=== PATIENT | female | born 1985 | race Caucasian/White ===

== ENCOUNTER → 2016-08-07 | Outpatient (CLI) | payer OTHER ==
--- NOTE | 2016-08-08 00:03 | XCELERA REPORT ---
[address] [address] Transthoracic Echocardiogram Report Name: URIEL GREEN Age: 31 yrs Gender: Female : 1985 Patient Status: Outpatient Patient Location: Study Date: 08/07/2016 01:06 PM Height: 67 in Weight: 180 lb BSA: 1.9 m2 Procedure: A complete two-dimensional transthoracic echocardiogram was performed (2D, M-mode, spectral and color flow Doppler). The study was technically adequate with some images being suboptimal in quality. Reason For Study: I31.3 Ordering Physician: JOSE GAGNON Performed By: Genet Peraza Interpretation Summary Left ventricular systolic function is normal. Doppler measurements suggest normal left ventricular diastolic function There is normal left ventricular wall thickness. The left ventricle is grossly normal size. Wall motion cannot be accurately commented on, but no definite regional wall motion abnormalities noted. The right ventricular systolic function is normal. The left atrial size is normal. The right atrium is normal in size There is no mitral valve stenosis. There is a trace amount of mitral regurgitation There is no aortic valve stenosis No aortic regurgitation is present. There is a trace or physiologic amount of tricuspid regurgitation Tricuspid regurgitation jet envelope not well defined to measure RV systolic pressure accurately. The aortic root is not well visualized but is probably normal size. The inferior vena cava appeared normal and decreased > 50% with respiration (RAP 5-10 mmHg) Minimal pericardial effusion. MMode/2D Measurements \T\ Calculations RVDd: 2.1 cm LVIDd: 4.6 cm FS: 39.9 % Ao root diam: 2.9 cm IVSd: 0.77 cm LVIDs: 2.8 cm EDV(Teich): 99.0 ml LVPWd: 0.81 cmESV(Teich): 29.1 ml Ao root area: 6.7 cm2 EF(Teich): 70.5 % LA dimension: 2.2 cm LVOT diam: 2.1 cm LVOT area: 3.3 cm2 Doppler Measurements \T\ Calculations MV E max rita: MV P1/2t max rita: Ao V2 max: LV V1 max P.0 cm/sec 118.5 cm/sec 161.3 cm/sec 8.0 mmHg MV A max rita: MV P1/2t: 50.5 msec Ao max PG: LV V1 max: 98.7 cm/sec MVA(P1/2t): 4.4 cm2 10.4 mmHg 141.7 cm/sec MV E/A: 1.2 MV dec slope: ADRIANO(V,D): 2.9 cm2 686.6 cm/sec2 PA V2 max: TR max rita: 108.6 cm/sec 258.4 cm/sec PA max PG: TR max P.7 mmHg 4.7 mmHg Left Ventricle The left ventricle is grossly normal size. There is normal left ventricular wall thickness. Left ventricular systolic function is normal. Doppler measurements suggest normal left ventricular diastolic function. Wall motion cannot be accurately commented on, but no definite regional wall motion abnormalities noted. Right Ventricle The right ventricle is grossly normal size. There is normal right ventricular wall thickness. The right ventricular systolic function is normal. Atria The right atrium is normal in size. The left atrial size is normal. Interarterial septum not well visualized and not well dopplered. Cannot comment on ASD/PFO presence. Mitral Valve The mitral valve is grossly normal. There is no mitral valve stenosis. There is a trace amount of mitral regurgitation. Aortic Valve The aortic valve is not well visualized secondary to technical limitations. There is no aortic valve stenosis. No aortic regurgitation is present. Tricuspid Valve The tricuspid valve is not well visualized, but is grossly normal. There is no tricuspid stenosis. There is a trace or physiologic amount of tricuspid regurgitation. Tricuspid regurgitation jet envelope not well defined to measure RV systolic pressure accurately. Pulmonic Valve The pulmonic valve is not well visualized. Great Vessels The aortic root is not well visualized but is probably normal size. The inferior vena cava appeared normal and decreased > 50% with respiration (RAP 5-10 mmHg). Effusions Minimal pericardial effusion. : JOSE GAGNON > Owen Ibarra
== END ==
LOC: SP 12:56
PROVIDERS: ATTEND Specialist
DX: I31.3 Pericardial effusion (noninflammatory) (principal)
CPT/HCPCS: 93306

== ENCOUNTER 2016-08-21 08:59 | Day surgery (SDC) | payer OTHER ==
[2016-08-20 10:06] LABS: HEMATOCRIT 40.8 % (36.0-47.0); HEMOGLOBIN 13.2 g/dL (12.0-15.5); HGB HCT DIFFERENCE -1.2; MEAN CORPUSCULAR HEMOGLOBIN 27.8 pg (27.0-33.4); MEAN CORPUSCULAR HGB CONC 32.4 g/dL (32.0-36.0); MEAN CORPUSCULAR VOLUME 86 fl (80-97); RED BLOOD COUNT 4.75 10^6/uL (3.72-5.28); RED CELL DISTRIBUTION WIDTH 13.1 % (11.5-14.0); WHITE BLOOD COUNT 6.2 10^3/uL (4.0-10.5)
[2016-08-20 10:42] LABS: ALANINE AMINOTRANSFERASE 36 U/L (9-52); ALBUMIN 4.5 g/dL (3.5-5.0); ALKALINE PHOSPHATASE 71 U/L (38-126); ANION GAP 11 (5-19); ASPARTATE AMINO TRANSFERASE 29 U/L (14-36); BILIRUBIN,DIRECT 0.3 mg/dL (0.0-0.4); BILIRUBIN,TOTAL 0.5 mg/dL (0.2-1.3); BLOOD UREA NITROGEN 4 mg/dL (7-20); CALCIUM 9.6 mg/dL (8.4-10.2); CARBON DIOXIDE 27 mmol/L (22-30); CHLORIDE 101 mmol/L (98-107); GLUCOSE 75 mg/dL (75-110); POTASSIUM 3.8 mmol/L (3.6-5.0); SODIUM 139.4 mmol/L (137-145); TOTAL PROTEIN 7.6 g/dL (6.3-8.2)
--- NOTE | 2016-08-20 12:55 | EKG REPORT ---
SEVERITY:- OTHERWISE NORMAL ECG - SINUS RHYTHM LOW VOLTAGE EKG : Confirmed by: Sotero Sabillon MD 20-Aug-2016 12:55:01
[~2016-08-21 08:59] MED LIST: ACETAMINOPHEN 325 MG TABLET PO PRN; CEFAZOLIN 1 GM/D5W RTU 1 GM/50 ML RTUPB IV PRN; LACTATED RINGERS 1000 ML IV PRN; LIDOCAINE 0.5% INJ-PF (5 MG/ML) 50 ML SDV SUBCUT PRN
[2016-08-21] MEDS ORDERED: BUPIVACAINE HCL 0.25 % INJ/PF (2.5 MG/1 ML) 30 ML VIAL ONE (09:14)
[2016-08-21] MEDS ORDERED: SCOPOLAMINE HYDROBROMIDE 1.5 MG PATCH.TD72 ONE (09:57)
[2016-08-21] MEDS ORDERED: FAMOTIDINE INJ/PF 20 MG/2 ML SDV IV ONE (09:58)
[2016-08-21] MEDS ORDERED: FENTANYL CITRATE INJ/PF 250 MCG/5 ML AMPULE ONE (10:44)
[2016-08-21] MEDS ORDERED: MIDAZOLAM 2 MG/2 ML INJ ONE (10:45)
[2016-08-21] MEDS ORDERED: PROPOFOL INJ 200 MG/20 ML VIAL IV ONE (10:46)
[2016-08-21] MEDS ORDERED: IBUPROFEN INJ 800 MG/8 ML VIAL IV ONE (10:46)
[2016-08-21] MEDS ORDERED: MORPHINE SULFATE 10 MG/ML INJ ONE (10:46)
--- NOTE | 2016-08-21 12:16 | Operative Report ---
Operative Report DATE OF SURGERY: 08/21/16 PREOPERATIVE DIAGNOSIS: Symptomatic cholelithiasis. POSTOPERATIVE DIAGNOSIS: Somatic cholelithiasis OPERATION: Laparoscopic cholecystectomy SURGEON: CHEPE VALVERDE ANESTHESIA: GA TISSUE REMOVED OR ALTERED: gallbladder COMPLICATIONS: None ESTIMATED BLOOD LOSS: Minimal INTRAOPERATIVE FINDINGS: None PROCEDURE: Informed consent was obtained. Patient was brought to the operating room placed operating table in supine position. After satisfactory induction of general anesthesia, patient's abdomen was prepped and draped in usual sterile fashion. A infra umbilical midline incision was made and dissection carried down to the fascia the peritoneal cavity entered without difficulty. Granado trocar was inserted. Pneumoperitoneum produced good patient toleration. 5 mm trocar was placed in the subxiphoid location.Two 5 mm trochars were placed in the right subcostal location. The gallbladder was grasped and retracted cephalad over the dome of the liver. The infundibulum of the gallbladder was grasped retracted laterally and inferiorly thus exposing calot's triangle. There was a enlarged close node and it was identified and its pedicle was clipped and divided. The cystic duct gallbladder junction was clearly identified and the cystic duct was clipped and divided. Cystic artery was likewise taken. The gallbladder was taken off the gallbladder bed using the hook electrocautery technique. The gallbladder was removed with an Endobag through the Granado trocar site fascial defect. Hemostasis appeared excellent. Small amount of irrigation and aspiration was performed. Irrigation fluid was perfectly clear at the end of the case. All trochars were removed under the direct vision a laparoscope to ensure hemostasis. The Granado trocar site fascial defect was closed with interrupted Vicryl sutures. All skin incisions were closed with subcuticular interrupted Monocryl sutures. Marcaine was injected at the port sites. Patient tolerated procedure well no apparent complications and was taken to the recovery area in stable condition.
[2016-08-21] MEDS ORDERED: RINGERS SOLUTION,LACTATED 1,000 ML IV PRN (12:20)
[2016-08-21] MEDS ORDERED: MORPHINE SULFATE 10 MG/ML INJ IV PRN (12:20)
[2016-08-21] MEDS ORDERED: ONDANSETRON HCL INJ/PF 4 MG/2 ML SDV IV PRN (12:20)
[2016-08-21] MEDS ORDERED: OXYCODONE-ACETAMINOPHEN 5-325 MG TABLET PO PRN (12:20)
--- NOTE | 2016-08-21 12:20 | PDOC DISCHARGE SUMMARY ---
Discharge Summary (SDC) - Discharge Final Diagnosis: Symptomatic gallstones Date of Surgery: 08/21/16 Discharge Date: 08/21/16 Condition: Good Treatment or Instructions: Patient underwent laparoscopic cholecystectomy. May discharge patient home when met discharge criteria. Follow-up with me in 2 weeks. Stay active but avoid strenuous activity. May shower in 2 days. Keep Steri-Strips on. Prescriptions: Oxycodone HCl/Acetaminophen [Percocet 5-325 mg Tablet] 1 - 2 tab PO ASDIR PRN # 25 tablet PRN Reason: Discharge Diet: As Tolerated Discharge Activity: Activity As Tolerated - Stay active but avoid strenuous activity. Report the Following to Your Physician Immediately: Yellow Skin, Fever over 101 Degrees, Unusual Bleeding, Redness, Drainage-Foul Smelling
[2016-08-21] MEDS ORDERED: ONDANSETRON HCL INJ/PF 4 MG/2 ML SDV ONE (13:14)
[2016-08-21] MEDS ORDERED: DEXAMETHASONE SOD PHOSPHATE INJ 4 MG/1 ML VIAL ONE (13:14)
[2016-08-21] MEDS ORDERED: METOCLOPRAMIDE HCL INJ/PF 10 MG/2 ML SDV ONE (13:14)
[2016-08-21] MEDS ORDERED: GLYCOPYRROLATE INJ 0.4 MG/2 ML VIAL ONE (13:14)
[2016-08-21] MEDS ORDERED: LIDOCAINE 2% INJ-PF (20 MG/ML) 10 ML AMPUL ONE (13:14)
[2016-08-21] MEDS ORDERED: NEOSTIGMINE METHYLSULFATE 10 MG/10 ML VIAL ONE (13:14)
[2016-08-21 15:07] VITALS: BP 133/79
== END 2016-08-21 14:50 | disposition home or self-care (01) ==
LOC: OROUT 08:59
PROVIDERS: ATTEND Surgery
PROC: 0FT44ZZ Resection of Gallbladder, Percutaneous Endoscopic Approach (ICD-10-PCS; principal; 2016-08-21 11:00)
DX: K81.1 Chronic cholecystitis (principal)
CPT/HCPCS: 93005; 36415; 85027; 81025; 80053; 88304 ×2; 93010; 47562; J2250; J0690; J1100; J3010; J2765; J2270; J2405; J2704; S0028; J3490; J1741; 790